=== PATIENT | female | born 1950 | race Caucasian/White ===

== ENCOUNTER 2016-12-23 16:43 | Emergency (ER) | payer MEDICARE, BC ==
[2016-12-23] MEDS ORDERED: POLYETHYLENE GLYCOL 3350 17 GM POWD.PACK ONE ×2 (17:22→18:14)
--- NOTE | 2016-12-23 19:10 | ER NURSING DOCUMENTATION ---
Nurse's Notes [facility] Name:Yulisa Charlton Age:66 yrs Sex:Female :1950 Arrival Date:12/23/2016 Time:16:43 Bed4 Private MD: Diagnosis:Constipation Presentation: 12/23 16:46 Acuity: LELO 4 tg 16:57 Presenting complaint: Patient states: Pt reports no significant BM in the past 3 weeks. tg Also feeling dehydrated. No pain. Transition of care: patient was not received from another setting of care. 16:57 Method Of Arrival: Private Vehicle tg Triage Assessment: 17:00 General: Appears in no apparent distress, Behavior is cooperative. Pain: Denies pain. tg Respiratory: Airway is patent Respiratory effort is even, unlabored. GI: Reports constipation. Historical: - Allergies: SULFA (SULFONAMIDES); Amantadine; - Home Meds: 1. Prozac 20 mg oral cap 1 cap once daily 2. simvastatin 20 mg oral tab 1 tab once daily 3. Trazadone 4. zolpidem 10 mg oral tab 1 tab once daily 5. gabapentin 100 mg oral cap 3 caps 3 times per day 6. Myrbetriq 50 mg oral Tb24 1 tab once daily 7. Pepcid 40 mg oral tab 1 tab at bedtime - PMHx: HEART MURMUR; Obstructive Sleep Apnea; MULTIPLE SCLEROSIS; Restless Leg Syndrome; Osteopenia; Mixed Hyperlipidemia; GERD; Depressive Disorder; Chronic Fatigue; Ataxia; Incontinence; IRRITABLE BOWEL SYNDROME; Nausea & Vomiting; Abdominal Pain; - PSHx: Tubal Ligation; Left Ovarian Cystectomy; Tonsillectomy; - Tetanus: < 10 years. - Ebola Screening: : Patient negative for fever greater than or equal to 101.5 degrees Fahrenheit, and additional compatible Ebola Virus Disease symptoms. Patient denies exposure to infectious person. Patient denies travel to an Ebola-affected area in the 21 days before illness onset. No symptoms or risks identified at this time. Patient negative for fever greater than or equal to 101.5 degrees Fahrenheit, and additional compatible Ebola Virus Disease symptoms. Patient denies exposure to infectious person. Patient denies travel to an Ebola-affected area in the 21 days before illness onset. . - Immunization history: Pneumococcal vaccine is up to date, Flu Vaccine < 1 year. - Social history: Smoking status: Patient states former smoker of tobacco. Screenin:06 Infectious Disease Risk None. Abuse screen: Denies threats or abuse. Denies injuries lp from another. Nutritional screening: No deficits noted. Vital Signs: 17:01 BP 136 / 73; Pulse 65; Resp 18; Temp 97.8(TE); Pulse Ox 94% on R/A; Weight 58.97 kg; tg Height 5 ft. 6 in. (167.64 cm) (R); Pain 1/10; 19:04 BP 127 / 55; Pulse 55; Resp 16; Pulse Ox 96% on R/A; lp 17:01 Body Mass Index 20.98 (58.97 kg, 167.64 cm) tg ED Course: 16:45 Patient arrived in ED. dp 16:45 Hugo Dumont RN is Primary Nurse. tg 16:47 Triage completed. tg 16:52 Ha Becerra MD is Attending Physician. sc 17:07 Valuables Remains with patient Patient has correct armband on for positive lp identification. Bed in low position. Call light in reach. 18:10 Patient moved to radiology. hz 18:20 Patient moved back from radiology. hz 18:57 Madeleine Colmenares MD is Referral Physician. sc Administered Medications: 17:14 Drug: Miralax 17 grams; Route: PO; lp 18:02 Follow up: Response: No adverse reaction; No change in condition tg 18:23 Follow up: Response: No adverse reaction; No change in condition lp 18:03 Drug: Miralax 17 grams; Route: PO; tg 19:05 Follow up: Response: No adverse reaction; No change in condition Point of Care Testing: Urine Dip: 17:14 pH: 7.0; ; Specific [place]: 1.010; Ketones: Negative; Glucose: Negative; Protein: lp Negative; Leukocytes: Negative; Nitrite: Negative ; Blood: Non Hemolyzed Trace; Bilirubin: Negative ; Urobilinogen: Normal Outcome: 18:58 Discharge ordered by . sd 19:05 Discharged to home ambulatory. lp 19:05 Condition: good 19:05 Instructed on discharge instructions, follow up and referral plans. medication usage. 19:10 Patient left the ED. lp Signatures: Hugo Dumont RN RN Janet Rolon RN RN Ha Becerra MD MD sd Judith Todd Mendoza, Amanda dp
--- NOTE | 2016-12-23 19:10 | ER PHYSICIAN DOCUMENTATION ---
Physician Documentation [facility] Name:Yulisa Charlton Age:66 yrs Sex:Female :1950 Arrival Date:12/23/2016 Time:16:43 Bed4 Private MD: Ha You Disposition: 12/23/16 18:58 Discharged to Home/Self Care. Impression: Constipation. - Condition is Good. - Discharge Instructions: CONSTIPATION (Adult). - Medical Reconciliation form form. - Follow up: Madeleine Colmenares MD; When: As needed; Reason: Continuance of care. - Problem is new. - Symptoms have improved. HPI: 12/23 18:13 This 66 yrs old Female presents to ER via Private Vehicle with complaints of sc Constipation. 18:13 The patient presents with abdominal pain constipation, the patient has not had a bowel sc movement for 3days. Onset: The symptoms/episode began/occurred 1 month(s) ago. The symptoms do not radiate. Associated signs and symptoms: Pertinent positives: constipation, fullness, hard stools. The symptoms are described as constant. Modifying factors: The symptoms are alleviated by nothing. Severity of pain: At its worst the pain was mild. The patient has experienced similar episodes in the past, chronically. Historical: - Allergies: SULFA (SULFONAMIDES); Amantadine; - Home Meds: 1. Prozac 20 mg oral cap 1 cap once daily 2. simvastatin 20 mg oral tab 1 tab once daily 3. Trazadone 4. zolpidem 10 mg oral tab 1 tab once daily 5. gabapentin 100 mg oral cap 3 caps 3 times per day 6. Myrbetriq 50 mg oral Tb24 1 tab once daily 7. Pepcid 40 mg oral tab 1 tab at bedtime - PMHx: HEART MURMUR; Obstructive Sleep Apnea; MULTIPLE SCLEROSIS; Restless Leg Syndrome; Osteopenia; Mixed Hyperlipidemia; GERD; Depressive Disorder; Chronic Fatigue; Ataxia; Incontinence; IRRITABLE BOWEL SYNDROME; Nausea & Vomiting; Abdominal Pain; - PSHx: Tubal Ligation; Left Ovarian Cystectomy; Tonsillectomy; - Tetanus: < 10 years. - Ebola Screening: : Patient negative for fever greater than or equal to 101.5 degrees Fahrenheit, and additional compatible Ebola Virus Disease symptoms. Patient denies exposure to infectious person. Patient denies travel to an Ebola-affected area in the 21 days before illness onset. No symptoms or risks identified at this time. Patient negative for fever greater than or equal to 101.5 degrees Fahrenheit, and additional compatible Ebola Virus Disease symptoms. Patient denies exposure to infectious person. Patient denies travel to an Ebola-affected area in the 21 days before illness onset. . - Immunization history: Pneumococcal vaccine is up to date, Flu Vaccine < 1 year. - Social history: Smoking status: Patient states former smoker of tobacco. ROS: 18:15 Constitutional: Negative for fever, chills, and weight loss. sc Eyes: Negative for injury, pain, redness, and discharge. ENT: Negative for injury, pain, and discharge. Neck: Negative for injury, pain, and swelling. Cardiovascular: Negative for chest pain, palpitations, and edema. Respiratory: Negative for shortness of breath, cough, wheezing, and pleuritic chest pain. Back: Negative for injury and pain. Skin: Negative for injury, rash, and discoloration. 18:15 Neuro: Negative for headache, weakness, numbness, tingling, and seizure. sc 18:15 Abdomen/GI: Positive for constipation, abdominal fullness. Exam: Constitutional: This is a well developed, well nourished patient who is awake, alert, and in no acute distress. Head/Face: Normocephalic, atraumatic. Eyes: Pupils equal round and reactive to light, extra-ocular motions intact. Lids and lashes normal. Conjunctiva and sclera are non-icteric and not injected. Cornea within normal limits. Periorbital areas with no swelling, redness, or edema. Neck: Trachea midline, no thyromegaly or masses palpated, and no cervical lymphadenopathy. Supple, full range of motion without nuchal rigidity, or vertebral point tenderness. No meningismus. Chest/axilla: Normal chest wall appearance and motion. Nontender with no deformity. No lesions are appreciated. Cardiovascular: Regular rate and rhythm with a normal S1 and S2. No gallops, murmurs, or rubs. Normal PMI, no JVD. No pulse deficits. Respiratory: Lungs have equal breath sounds bilaterally, clear to auscultation and percussion. No rales, rhonchi or wheezes noted. No increased work of breathing, no retractions or nasal flaring. Skin: Warm, dry with normal turgor. Normal color with no rashes, no lesions, and no evidence of cellulitis. 18:16 Neuro: Awake and alert, GCS 15, oriented to person, place, time, and situation. nh Cranial nerves II-XII grossly intact. Motor strength 5/5 in all extremities. Sensory grossly intact. Cerebellar exam normal. Normal gait. 18:16 Abdomen/GI: Inspection: abdomen appears normal, Bowel sounds: normal, Palpation: abdomen is soft and non-tender, in all quadrants. Vital Signs: 17:01 BP 136 / 73; Pulse 65; Resp 18; Temp 97.8(TE); Pulse Ox 94% on R/A; Weight 58.97 kg; tg Height 5 ft. 6 in. (167.64 cm) (R); Pain 1/10; 19:04 BP 127 / 55; Pulse 55; Resp 16; Pulse Ox 96% on R/A; lp 17:01 Body Mass Index 20.98 (58.97 kg, 167.64 cm) tg MDM: 16:52 Patient medically screened. nh 18:16 Differential diagnosis: bowel obstruction, Irritable bowel syndrome. Data reviewed: nh vital signs, nurses notes, and as a result, I will continue to observe the patient. Counseling: I had a detailed discussion with the patient and/or guardian regarding: the historical points, exam findings, and any diagnostic results supporting the discharge/admit diagnosis, radiology results, the need for outpatient follow up, with the patient's primary care provider. Medication response: The patient's symptoms have improved. 12/24 08:47 Order name: [id number]; COMPLET W/CHEST [id number] EDGA 12/23 17:04 Order name: Urine Dip; Complete Time: 17:14 nh Dispensed Medications: 17:14 Drug: Miralax 17 grams; Route: PO; lp 18:02 Follow up: Response: No adverse reaction; No change in condition tg 18:23 Follow up: Response: No adverse reaction; No change in condition lp 18:03 Drug: Miralax 17 grams; Route: PO; tg 19:05 Follow up: Response: No adverse reaction; No change in condition lp Point of Care Testing: Urine Dip: 17:14 pH: 7.0; ; Specific [place]: 1.010; Ketones: Negative; Glucose: Negative; Protein: lp Negative; Leukocytes: Negative; Nitrite: Negative ; Blood: Non Hemolyzed Trace; Bilirubin: Negative ; Urobilinogen: Normal Signatures: Hugo Dumont RN RN tg Janet Rolon RN RN lp Ha Becerra MD MD nh
--- NOTE | 2016-12-24 07:22 | RADIOLOGY REPORT ---
A single view of the chest demonstrates the heart, vessels and lungs to be unremarkable. Views of the abdomen demonstrate gas and stool throughout the colon. There is scattered nonspecific small bowel gas. Moderate retained fecal material is seen throughout the colon. No pathologic calcifications or free air are identified. IMPRESSION: Moderate retained fecal material throughout the colon with scattered nonspecific small bowel gas. MTDD
== END 2016-12-23 19:10 | disposition home or self-care (01) ==
LOC: ER 16:43
DX: K59.00 Constipation, unspecified (principal); G35 Multiple sclerosis; Z79.899 Other long term (current) drug therapy
CPT/HCPCS: 74022; 99283